=== PATIENT | female | born 1990 | race Hispanic/Latino ===

== ENCOUNTER 2021-03-14 07:56 | Day surgery (SDC) | payer OTHER ==
[2021-03-14] MEDS ORDERED: Mastisol Adhesive Liq ONE (08:49)
[2021-03-14] MEDS ORDERED: NS 0.9% VIAL 30 ML ONE (08:49)
[2021-03-14] MEDS ORDERED: GENTAMICIN SULF 80 MG/2ML INJ ONE (08:49)
[2021-03-14] MEDS ORDERED: BACITRACIN 50000 UNIT VIAL ONE (08:50)
[2021-03-14] MEDS ORDERED: LIDOCAINE 1% 20 ML MDV ONE (08:50)
[2021-03-14] MEDS ORDERED: Ringers Lactate 1,000 ML IV ONE ×3 (08:50→08:59)
[2021-03-14] MEDS ORDERED: CELECOXIB 100 MG CAPSULE ONE (08:51)
[2021-03-14] MEDS ORDERED: SCOPOLAMINE HYDROBROMIDE PATCH TD ONE (08:52)
[2021-03-14] MEDS ORDERED: ACETAMINOPHEN 500 MG TAB ONE (08:52)
[2021-03-14] MEDS ORDERED: CLINDAMYCIN INJ 300 MG in NA CHLORIDE 0.9% 50 ML IV ONE (09:00)
[2021-03-14] MEDS ORDERED: propofoL 200 MG/20 ML VIAL IV ONE (09:01)
[2021-03-14] MEDS ORDERED: NS 0.9% VIAL 10 ML ONE (09:02)
[2021-03-14] MEDS ORDERED: FENTANYL CITR 250 MCG/5 ML ONE (09:02)
[2021-03-14] MEDS ORDERED: dexAMETHasone 10 MG/ML VIAL ONE (09:02)
[2021-03-14] MEDS ORDERED: VECURONIUM 10 MG/VIAL IV ONE ×2 (09:02→11:44)
[2021-03-14] MEDS ORDERED: ONDANSETRON 4 MG/2 ML VIAL ONE ×2 (09:02→13:32)
[2021-03-14] MEDS ORDERED: MIDAZOLAM HCL 2 MG/2 ML INJ ONE (09:02)
[2021-03-14] MEDS ORDERED: LIDOCAINE 1% MPF 5 ML VIAL ONE (09:02)
[2021-03-14] MEDS ORDERED: LANO/MINERAL OIL/PETRO 3.5 GM ONE (09:04)
[2021-03-14] MEDS ORDERED: MORPHINE 10 MG/ML VIAL ONE (13:30)
[2021-03-14] MEDS ORDERED: GLYCOPYRROLATE 0.2 MG/ML SYR ONE (13:31)
[2021-03-14] MEDS ORDERED: KETOROLAC 30 MG/ML INJ ONE (13:31)
[2021-03-14] MEDS ORDERED: NEOSTIGMINE 1 MG/ML -5 ML ONE (13:32)
[2021-03-14] MEDS ORDERED: FENTANYL CITR 100 MCG/2 ML ONE (15:03)
[2021-03-14] MEDS ORDERED: LIDOCAINE 1% W/EPI 1:100,000 MDV 20 ML VIAL ONE (15:23)
[2021-03-14] MEDS ORDERED: CODEINE 30MG/APAP 300MG TAB ONE (15:57)
[2021-03-14 17:14] VITALS: BP 125/76; O2SAT 98
[2021-03-14] MEDS ORDERED: HYDROCODONE/APAP 10/325 TAB ONE (17:16)
[2021-03-14 18:03] VITALS: TEMP 97.8
--- NOTE | 2021-03-15 00:50 | OP ---
Surgeon: Jann Mcdaniels MD Preoperative Diagnosis: Breast descent after implants. Postoperative Diagnosis: Breast descent after implants. Procedure: Explantation and lift. Anesthesia: General. Procedure In Detail: After satisfactory induction of general anesthesia, chest was prepped with Dura Prep and dry sterile drapes were applied in the usual manner. A 5 cm template was used to outline th e right and left areolas. Then transverse curvilinear incisions were made. Intervening skin was de- epithelialized with dermabrader. Right side was approached first. Transverse incision was made elec trocautery. Flap was elevated towards the sternum, clavicle, anterior axillary line. Then, the late ral incision was made along the edge of pec major. The implant was encountered. It was removed inta ct with saline, weight 460 g. Wound was irrigated with antibiotic solution and then the incision was made inferiorly, and then the deepithelialized tissue was formed with cone using 2-[address] raps were elevated at 12 o'clock, 1:30, and 3 o'clock position. The straps were then woven in and ou t of the pectoralis muscle back to base of cone, tied themselves with several 2-0 PDS sutures. This was done for the 12 o'clock, 1:30 and 3 o'clock. Strap was sewn over the sternum at 3 o'clock positi on with 2-0 Ethibond. The wound was kept in sterile shape. The left side was done in a mirror-image manner. We then returned to the right side. Marked out the lateral dog ear, cut it out, electrocau shefali was used hemostasis. A 10 EDUARDO was brought out of the axilla and then the wound was closed in lay ers using 3-0 Vicryl for subcutaneous, 3-0 PDS running subcuticular, lateral to medial and medial to lateral, tied in the vertical meridian of the breast. Left side was done in the identical manner. Patient was sat up. Site for new nipple-areolar complex was marked out. Tissue cored out using 5 cm template. Nipple areolar complex was delivered, sewn with interrupted 4-0 PDS followed by 4-0 PDS running subcuticular. Tinc of benzoin, Steri-Strips, followed by Esmarch, fluffs, and Qasim w rap. The patient tolerated procedure well and returned to Recovery. GH/MODL Voice ID: [id number] Report ID: [id number]
== END 2021-03-14 17:55 | disposition home or self-care (01) ==
LOC: OR 07:56
PROVIDERS: ATTEND Specialist
PROC: 0HPT0JZ Removal of Synthetic Substitute from Right Breast, Open Approach (ICD-10-PCS; 2021-03-14)
PROC: 0HSV0ZZ Reposition Bilateral Breast, Open Approach (ICD-10-PCS; 2021-03-14)
PROC: 0HPU0JZ Removal of Synthetic Substitute from Left Breast, Open Approach (ICD-10-PCS; principal; 2021-03-14 09:00)
DX: N64.81 Ptosis of breast (principal); Z45.812 Encounter for adjustment or removal of left breast implant; Z45.811 Encounter for adjustment or removal of right breast implant
CPT/HCPCS: 81025; 88305; 19328; 19316; U0003; J2704; J1580; J2250; J3010 ×2; J1100; J2710; J7120 ×2; J2405 ×2